=== PATIENT | male | born 1980 | race Caucasian/White ===

== ENCOUNTER 2019-09-10 17:19 | Emergency (ER) | payer BC, OTHER ==
[2019-09-10 17:24] VITALS: BP 126/75; PULSE 87; RESP 16; TEMP 98.1
[2019-09-10] MEDS ORDERED: FLUORESCEIN STRIPS 1 MG STRIP BOTH EYES ONE (17:29)
[2019-09-10] MEDS ORDERED: PROPARACAINE 0.5% OPHTH DROPS 15 ML BTL BOTH EYES STA (17:31)
[2019-09-10] MEDS ORDERED: ERYTHROMYCIN 5 MG/GM OPHTH OINT 1 GM TUBE LEFT EYE STA (17:57)
--- NOTE | 2019-09-10 17:58 | ED ---
General Adult HPI - General Chief complaint: Eye Problems Stated complaint: Object in eye Time Seen by Provider: 09/10/19 17:29 Source: patient, RN notes reviewed, old records reviewed Mode of arrival: ambulatory Limitations: no limitations - History of Present Illness Initial comments: 39-year-old male with suspected foreign body in the left eye. Patient was working on a dirt bike, had something blow into his left eye. He was not grinding. He suspects maybe dirt or metal. Patient is a noncontact lens work. He has previous history of corneal laceration and didn't follow with ophthalmology at that time. He reports some pain in the left eye. Normal vision. - Related Data Home Medications Medication Instructions Recorded Confirmed Cetirizine HCl [Zyrtec] 5 mg PO DAILY 08/27/15 08/27/15 Dextroamphetamine/Amphetamine 20 mg PO DAILY 08/27/15 08/27/15 [Adderall] Allergies Allergy/AdvReac Type Severity Reaction Status Date / Time No Known Allergies Allergy Verified 09/10/19 17:24 Review of Systems ROS Statement: Those systems with pertinent positive or pertinent negative responses have been documented in the HPI. ROS Other: All systems not noted in ROS Statement are negative. Past Medical History Past Medical History: No Reported History History of Any Multi-Drug Resistant Organisms: None Reported Past Surgical History: No Surgical Hx Reported Additional Past Surgical History / Comment(s): dental Past Psychological History: No Psychological Hx Reported Smoking Status: Current every day smoker Past Alcohol Use History: None Reported Past Drug Use History: None Reported General Exam Limitations: no limitations General appearance: alert, in no apparent distress Head exam: Present: atraumatic, normocephalic Eye exam: Present: PERRL, other (Left conjunctival injection, corneal foreign body at the 5 o'clock position. Valentina's is negative). Absent: periorbital swelling, periorbital tenderness Neck exam: Present: normal inspection. Absent: tenderness, meningismus Respiratory exam: Present: normal lung sounds bilaterally Cardiovascular Exam: Present: regular rate, normal rhythm GI/Abdominal exam: Present: soft. Absent: distended, tenderness, guarding Extremities exam: Present: normal inspection Neurological exam: Present: alert, oriented X3 Psychiatric exam: Present: normal affect, normal mood Skin exam: Present: warm, dry Course Vital Signs 09/10/19 17:21 Temperature 98.1 F Pulse Rate 87 Respiratory 16 Rate Blood Pressure 126/75 O2 Sat by Pulse 98 Oximetry Medical Decision Making - Medical Decision Making 39-year-old male with foreign body in the left cornea. There is a negative Valentina's test. I did attempt to remove this foreign body with Edwar brush, it was partially removed with a small retained fragment within the cornea. This may be rust ring first retained foreign body. Valentina's test was repeated and was negative for fluid drainage after use of Edwra brush. I did place patient on antibiotics in the emergency department and is given close follow-up with ophthalmology. Patient will call for an appointment tomorrow morning. Disposition Clinical Impression: Corneal abrasion, Foreign body of cornea Disposition: HOME SELF-CARE Instructions (If sedation given, give patient instructions): Eye Foreign Body (ED), Abrasion (ED) Additional Instructions: Placed erythromycin ointment in the left eye 4 times daily, follow-up with ophthalmology as soon as possible. Is patient prescribed a controlled substance at d/c from ED?: No Referrals: Roc Hendrix MD [Primary Care Provider] - 1-2 days Shemar Keene MD [STAFF PHYSICIAN] - 1-2 days Time of Disposition: 17:57
== END 2019-09-10 18:17 | disposition home or self-care (01) ==
LOC: EC 17:19
DX: T15.02XA Foreign body in cornea, left eye, initial encounter (principal); F17.200 Nicotine dependence, unspecified, uncomplicated; W45.8XXA Other foreign body or object entering through skin, initial encounter; Y93.89 Activity, other specified; Y92.89 Other specified places as the place of occurrence of the external cause
CPT/HCPCS: 65220; 99283